=== PATIENT | male | born 1970 | race Caucasian/White ===

== ENCOUNTER → 2022-09-04 08:38 | Outpatient (CLI) | payer OTHER, SELFPAY ==
[2022-09-04 09:12] LABS: COVID19 -Nasal RAPID Negative (Negative)
== END ==
PROVIDERS: Radiology Diagnostic Radiology; Family Provider Family Medicine; PCP Family Medicine; Referring Provider Family Medicine; Visit Provider Family Medicine
DX: Z20.822 Contact with and (suspected) exposure to COVID-19 (principal)
CPT/HCPCS: 87635; C9803

== ENCOUNTER → 2022-09-06 07:48 | Outpatient (CLI) | payer OTHER, SELFPAY ==
--- NOTE | 2022-09-06 07:50 | DI.NM.S_ITS ---
PROCEDURE: NM EXERCISE TREADMILL NON NUC COMPARISON: None. INDICATIONS: Other forms of dyspnea FINDINGS: Rest ECG sinus rhythm. Saeed protocol 12: 01, maximum heart rate 160 bpm (94% peak predicted), maximum blood pressure 180/90, 12.8 METS, BLAIRE -11%. Stress ECG sinus tachycardia, no ST segment changes or arrhythmia. The patient did not complain of exercise-induced chest pain. IMPRESSION: No evidence of exercise-induced ischemia or arrhythmia. Normal blood pressure response to exercise. Good exercise capacity. Dictated by: Sabra Miller D.O. on 09/06/2022 at 15:44 Approved by: Sabra Miller D.O. on 09/06/2022 at 15:49
== END ==
PROVIDERS: Family Provider Family Medicine; PCP Family Medicine; Referring Provider Family Medicine; Visit Provider Family Medicine
DX: R06.09 Other forms of dyspnea (principal)
CPT/HCPCS: 93017